=== PATIENT | female | born 1960 | race Hispanic/Latino ===

== ENCOUNTER 2019-02-10 20:06 | Emergency (ER) | payer OTHER ==
[2019-02-10 20:29] LABS: APPEARANCE,URINE Clear (CLEAR); BILIRUBIN,URINE Negative (NEGATIVE); COLOR,URINE Yellow (YELLOW); GLUCOSE, URINE (UA) >=1000 mg/dL (NEGATIVE); KETONES,URINE Negative (NEGATIVE); LEUKOCYTE ESTERASE ,URINE Moderate (NEGATIVE); NITRATE,URINE Negative (NEGATIVE); OCCULT BLOOD,URINE Small (NEGATIVE); PH,URINE 6.5 (5.0-8.0); PROTEIN,URINE Negative (NEGATIVE)
[2019-02-10 20:37] LABS: BACTERIA,URINE Few /HPF (None Seen); MUCUS,URINE Few LPF (None Seen); SQUAMOUS EPITHELIAL CELL,UR 0-2 /HPF (0-2)
[2019-02-10] MEDS ORDERED: SODIUM CHLORIDE 0.9% 1000ML 1,000 ML IV ONE (21:05)
[2019-02-10] MEDS ORDERED: ONDANSETRON HCL 4 MG/2 ML VIAL ONE (21:05)
[2019-02-10] MEDS ORDERED: KETOROLAC TROMETHAMINE 30MG/ML ONE (21:05)
[2019-02-10 21:09] LABS: BASOPHILS % (AUTO) 0.2 % (0.0-5.0); EOSINOPHILS % (AUTO) 1.3 % (0.0-8.0); HEMATOCRIT 46.3 % (36-48); LYMPHOCYTES % (AUTO) 22.5 % (21.0-51.0); MEAN CORPUSCULAR HEMOGLOBIN 27.5 pg (27.0-33.0); MEAN CORPUSCULAR HGB CONC 33.3 g/dL (32.0-36.0); MEAN CORPUSCULAR VOLUME 82.5 fL (79-99); MONOCYTES % (AUTO) 7.6 % (3.0-13.0); PLATELET COUNT (AUTO) 339 K/uL (130-400); RED BLOOD CELL COUNT(AUTO) 5.61 MIL/uL (4.00-5.50); RED CELL DISTRIBUTION WIDTH 13.3 % (11.0-15.5); WHITE BLOOD COUNT (AUTO) 13.5 K/uL (4.8-10.8)
[2019-02-10 21:21] LABS: CREATININE 0.7 mg/dL (0.5-1.5); POTASSIUM 3.7 mmol/L (3.5-5.1)
[2019-02-10 21:25] LABS: ALBUMIN 3.4 g/dL (3.5-5.0); BILIRUBIN,TOTAL 0.3 mg/dL (0.2-1.0); TOTAL PROTEIN, SERUM 7.1 g/dL (6.0-8.3)
[2019-02-10] MEDS ORDERED: INSULIN HUMULIN R 100 UNIT/ML 3ML ONE (21:43)
[2019-02-10] MEDS ORDERED: LACTULOSE 20 GM/30 ML UDCUP ONE (21:53)
== END 2019-02-10 22:11 | disposition home or self-care (01) ==
LOC: EDH 20:06
DX: K59.00 Constipation, unspecified (principal); E11.9 Type 2 diabetes mellitus without complications; I10 Essential (primary) hypertension
CPT/HCPCS: 36415; 74176; 80053; 81001; 83690; 85025; 93005; 96374; 96375; 99285; J1815; J1885; J2405; J7030

== ENCOUNTER 2022-03-28 17:56 | Inpatient (IN) | payer OTHER ==
[~2022-03-28] VITALS: Ht 152.4 cm; Wt 102.5 kg
[2022-03-28 19:54] LABS: BASOPHILS % (AUTO) 0.2 % (0.0-5.0); HEMATOCRIT 44.2 % (36-48); LYMPHOCYTES % (AUTO) 3.1 % (21.0-51.0); MEAN CORPUSCULAR HEMOGLOBIN 26.1 pg (27.0-33.0); MEAN CORPUSCULAR VOLUME 78.9 fL (79-99); PLATELET COUNT (AUTO) 264 K/uL (130-400); RED CELL DISTRIBUTION WIDTH 14.9 % (11.0-15.5); WHITE BLOOD COUNT (AUTO) 20.8 K/uL (4.8-10.8)
[2022-03-28 20:03] LABS: APPEARANCE,URINE CLEAR (CLEAR); BILIRUBIN,URINE NEGATIVE (NEGATIVE); COLOR,URINE LIGHT-YELLOW (YELLOW); GLUCOSE, URINE (UA) >=1000 mg/dL (NEGATIVE); KETONES,URINE 10 mg/dL (NEGATIVE); LEUKOCYTE ESTERASE ,URINE 250 Leu/uL (NEGATIVE); NITRATE,URINE NEGATIVE (NEGATIVE); PROTEIN,URINE 10 mg/dL (NEGATIVE); UROBILINOGEN,URINE 0.2 mg/dL (0.2-1.0)
[2022-03-28 20:13] LABS: ALBUMIN 2.5 g/dL (3.5-5.0); CREATININE 0.7 mg/dL (0.5-1.5); MAGNESIUM 2.2 mg/dL (1.80-2.40); POTASSIUM 4.6 mmol/L (3.5-5.1); TOTAL PROTEIN, SERUM 7.2 g/dL (6.0-8.3)
[2022-03-28 20:20] LABS: B-TYPE NATRIURETIC PEPTIDE 40 pg/mL (0-100)
[2022-03-28 20:24] LABS: BACTERIA,URINE RARE /HPF (None Seen); MUCUS,URINE RARE LPF (None Seen); SQUAMOUS EPITHELIAL CELL,UR RARE /HPF (0-2)
[2022-03-28] MEDS ORDERED: CEFTRIAXONE 2GM VIAL IVP ONE (20:30)
[2022-03-28] MEDS ORDERED: 0.9%NACL 1000ML 1,365 ML IV ONE (20:30)
[2022-03-28 21:18] LABS: ABG OXYGEN SATURATION 79.4 % (95.0-99.0); BASE EXCESS,VENOUS BLOOD GAS 2.9 (-2.0-3.0); HCO3,VENOUS BLOOD GAS 27.7 (21.0-28.0); PCO2,VENOUS BLOOD GAS 43 (32-45); PH,VENOUS BLOOD GAS 7.425 (7.350-7.450)
[2022-03-28] MEDS ORDERED: ACETAMINOPHEN 325 MG TAB PO PRN (23:00)
[2022-03-28] MEDS ORDERED: METOPROLOL SUCCINATE 50 MG TAB.SR.24H PO ONE (23:30)
[2022-03-29 00:07] LABS: CREATININE 0.9 mg/dL (0.5-1.5); POTASSIUM 4.5 mmol/L (3.5-5.1)
[2022-03-29] MEDS ORDERED: INSULIN HUMULIN R 100 UNIT/ML 3ML ONE (01:25)
[2022-03-29] MEDS: ONDANSETRON 4MG INJ IV PRN (06:59)
[2022-03-29] MEDS: MORPHINE 2 MG SYG IV PRN (07:01)
[2022-03-29 07:54] LABS: BASOPHILS % (AUTO) 0.1 % (0.0-5.0); EOSINOPHILS % (AUTO) 0.4 % (0.0-8.0); HEMATOCRIT 36.1 % (36-48); LYMPHOCYTES % (AUTO) 6.7 % (21.0-51.0); MEAN CORPUSCULAR HEMOGLOBIN 25.8 pg (27.0-33.0); MEAN CORPUSCULAR HGB CONC 32.7 g/dL (32.0-36.0); MONOCYTES % (AUTO) 4.7 % (3.0-13.0); NEUTROPHILS % (AUTO) 87.3 % (40.0-77.0); PLATELET COUNT (AUTO) 259 K/uL (130-400); RED BLOOD CELL COUNT(AUTO) 4.57 MIL/uL (4.00-5.50); RED CELL DISTRIBUTION WIDTH 15.5 % (11.0-15.5); WHITE BLOOD COUNT (AUTO) 24.1 K/uL (4.8-10.8)
[2022-03-29] MEDS: INSULIN HUMULIN R 100 UNIT/ML 3ML SQ SCH ×3 (08:01→20:45)
[2022-03-29] MEDS: ENOXAPARIN SODIUM 40 MG/0.4 ML SYRINGE SQ SCH (08:01)
[2022-03-29] MEDS: FAMOTIDINE 20MG VIAL IV SCH ×2 (08:02→20:28)
[2022-03-29 08:13] LABS: ALBUMIN 1.9 g/dL (3.5-5.0); CREATININE 0.6 mg/dL (0.5-1.5)
[2022-03-29 08:23] LABS: CRP QUANTITATIVE 174.1 mg/L (0.00-9.0)
[2022-03-29] MEDS: INSULIN LISPRO 100 UNIT/ML 3ML SQ SCH ×3 (08:52→17:48)
[2022-03-29 09:13] LABS: ERYTHROCYTE SEDIMENTATION RATE 47 MM/HR (0-30)
[2022-03-29 12:30] VITALS: BP 156/75
[2022-03-29] MEDS: 0.9%NACL 1000ML 1,000 ML IV SCH (17:01)
[2022-03-29] MEDS: CEFTRIAXONE 2GM VIAL IVP SCH (17:01)
[2022-03-29] MEDS: ACETAMINOPHEN 325 MG TAB PO PRN (17:50)
[2022-03-29] MEDS ORDERED: INSULIN HUMULIN R 100 UNIT/ML 3ML SQ SCH (18:00)
[2022-03-29 19:35] VITALS: BP 132/57
[2022-03-29] MEDS: INSULIN GLARGINE 100 UNITS/ML 10 ML VIAL SQ SCH (20:46)
[2022-03-29 23:58] VITALS: BP 123/57
[2022-03-30] MEDS: ACETAMINOPHEN 325 MG TAB PO PRN (02:16)
[2022-03-30] MEDS: CEFTRIAXONE 2GM VIAL IVP SCH (03:24)
[2022-03-30] MEDS: 0.9%NACL 1000ML 1,000 ML IV SCH ×3 (03:24→21:58)
[2022-03-30 03:43] VITALS: BP 109/56
[2022-03-30] MEDS: INSULIN HUMULIN R 100 UNIT/ML 3ML SQ SCH ×4 (06:41→21:37)
[2022-03-30 08:00] VITALS: BP 128/59
[2022-03-30] MEDS: INSULIN LISPRO 100 UNIT/ML 3ML SQ SCH ×3 (08:05→16:12)
[2022-03-30] MEDS: FAMOTIDINE 20MG VIAL IV SCH ×2 (08:05→19:41)
[2022-03-30] MEDS: ENOXAPARIN SODIUM 40 MG/0.4 ML SYRINGE SQ SCH (08:09)
[2022-03-30 12:00] VITALS: BP 145/70
[2022-03-30] MEDS: MORPHINE 2 MG SYG IV PRN ×2 (12:15→19:41)
[2022-03-30] MEDS: ZOSYN 3.375GM +NS 50ML IV SCH ×2 (12:59→21:29)
[2022-03-30 16:00] VITALS: BP 127/55
[2022-03-30] MEDS ORDERED: NITROGLYCERIN 1GM OINT 1 INCH/1GM TD ONE ×2 (19:40→20:00)
[2022-03-30 20:00] VITALS: BP 114/53
[2022-03-30] MEDS ORDERED: NITROGLYCERIN 1GM OINT 1 INCH/1GM TD SCH (20:00)
[2022-03-30] MEDS: INSULIN GLARGINE 100 UNITS/ML 10 ML VIAL SQ SCH (21:37)
[2022-03-30] MEDS: ONDANSETRON 4MG INJ IV PRN (21:44)
[2022-03-30] MEDS: NITROGLYCERIN 1GM OINT 1 INCH/1GM TD SCH (22:30)
[2022-03-31] VITALS: BP 116/64
[2022-03-31 04:00] VITALS: BP 96/39
[2022-03-31] MEDS: ZOSYN 3.375GM +NS 50ML IV SCH ×3 (04:16→22:02)
[2022-03-31 04:57] LABS: CREATININE 0.5 mg/dL (0.5-1.5); MAGNESIUM 1.8 mg/dL (1.80-2.40); PHOSPHORUS 2.7 mg/dL (2.5-4.9); POTASSIUM 3.7 mmol/L (3.5-5.1)
[2022-03-31 05:09] LABS: BASOPHILS % (AUTO) 0.1 % (0.0-5.0); EOSINOPHILS % (AUTO) 1.3 % (0.0-8.0); HEMATOCRIT 21.3 % (36-48); LYMPHOCYTES % (AUTO) 16.8 % (21.0-51.0); MEAN CORPUSCULAR HEMOGLOBIN 26.2 pg (27.0-33.0); MEAN CORPUSCULAR HGB CONC 32.9 g/dL (32.0-36.0); MEAN CORPUSCULAR VOLUME 79.8 fL (79-99); MONOCYTES % (AUTO) 7.3 % (3.0-13.0); NEUTROPHILS % (AUTO) 73.3 % (40.0-77.0); PLATELET COUNT (AUTO) 197 K/uL (130-400); RED BLOOD CELL COUNT(AUTO) 2.67 MIL/uL (4.00-5.50); RED CELL DISTRIBUTION WIDTH 15.3 % (11.0-15.5); WHITE BLOOD COUNT (AUTO) 11.9 K/uL (4.8-10.8)
[2022-03-31] MEDS: NITROGLYCERIN 1GM OINT 1 INCH/1GM TD SCH (05:54)
[2022-03-31] MEDS: INSULIN HUMULIN R 100 UNIT/ML 3ML SQ SCH ×4 (05:55→22:22)
[2022-03-31] MEDS: 0.9%NACL 1000ML 1,000 ML IV SCH (07:30)
[2022-03-31 08:00] VITALS: BP 119/57
[2022-03-31] MEDS ORDERED: NITROGLYCERIN 1GM OINT 1 INCH/1GM TD PRN (08:00)
[2022-03-31 08:40] LABS: HEMATOCRIT 21.4 % (36-48); MEAN CORPUSCULAR HEMOGLOBIN 25.5 pg (27.0-33.0); MEAN CORPUSCULAR HGB CONC 31.8 g/dL (32.0-36.0); MEAN CORPUSCULAR VOLUME 80.1 fL (79-99); RED BLOOD CELL COUNT(AUTO) 2.67 MIL/uL (4.00-5.50); RED CELL DISTRIBUTION WIDTH 15.5 % (11.0-15.5); WHITE BLOOD COUNT (AUTO) 9.6 K/uL (4.8-10.8)
[2022-03-31] MEDS: FAMOTIDINE 20MG VIAL IV SCH ×2 (08:46→22:02)
[2022-03-31] MEDS: MORPHINE 2 MG SYG IV PRN (08:47)
[2022-03-31] MEDS: INSULIN LISPRO 100 UNIT/ML 3ML SQ SCH ×3 (08:51→17:52)
[2022-03-31] MEDS: ENOXAPARIN SODIUM 40 MG/0.4 ML SYRINGE SQ SCH (08:55)
[2022-03-31] MEDS ORDERED: INSULIN GLARGINE 100 UNITS/ML 10 ML VIAL SQ SCH (09:00)
[2022-03-31] MEDS ORDERED: IOHEXOL 350 MG/ML 100ML INFUS..BTL IV ONE (10:27)
[2022-03-31] MEDS ORDERED: IOHEXOL-350 50ML VIAL IV ONE (10:28)
[2022-03-31 12:00] VITALS: BP 149/75
[2022-03-31 16:00] VITALS: BP 138/62
[2022-03-31 20:00] VITALS: BP 129/47
[2022-03-31] MEDS ORDERED: LACTULOSE 20 GM/30 ML UDCUP ONE (21:09)
[2022-03-31] MEDS: LACTULOSE 20 GM/30 ML UDCUP PO PRN (22:02)
[2022-03-31] MEDS: INSULIN GLARGINE 100 UNITS/ML 10 ML VIAL SQ SCH (22:24)
[2022-04-01] VITALS: BP 130/52
[2022-04-01 04:00] VITALS: BP_SYST 137; BP_SYST 144; BP_DIAS 59; BP_DIAS 72
[2022-04-01] MEDS: ZOSYN 3.375GM +NS 50ML IV SCH ×2 (05:25→14:10)
[2022-04-01 05:57] LABS: BASOPHILS % (AUTO) 0.1 % (0.0-5.0); EOSINOPHILS % (AUTO) 1.5 % (0.0-8.0); HEMATOCRIT 26.1 % (36-48); LYMPHOCYTES % (AUTO) 19.4 % (21.0-51.0); MEAN CORPUSCULAR HEMOGLOBIN 26.5 pg (27.0-33.0); MEAN CORPUSCULAR HGB CONC 32.6 g/dL (32.0-36.0); MEAN CORPUSCULAR VOLUME 81.3 fL (79-99); MONOCYTES % (AUTO) 8.1 % (3.0-13.0); NEUTROPHILS % (AUTO) 69.9 % (40.0-77.0); PLATELET COUNT (AUTO) 234 K/uL (130-400); RED BLOOD CELL COUNT(AUTO) 3.21 MIL/uL (4.00-5.50); RED CELL DISTRIBUTION WIDTH 15.5 % (11.0-15.5); WHITE BLOOD COUNT (AUTO) 10.8 K/uL (4.8-10.8)
[2022-04-01 06:04] LABS: CREATININE 0.6 mg/dL (0.5-1.5); POTASSIUM 3.6 mmol/L (3.5-5.1)
[2022-04-01] MEDS: INSULIN HUMULIN R 100 UNIT/ML 3ML SQ SCH ×3 (07:24→21:00)
[2022-04-01 08:00] VITALS: BP 127/62
[2022-04-01] MEDS: 0.9%NACL 1000ML 1,000 ML IV SCH ×3 (10:22→14:11)
[2022-04-01] MEDS: INSULIN LISPRO 100 UNIT/ML 3ML SQ SCH ×3 (10:29→17:43)
[2022-04-01] MEDS: INSULIN GLARGINE 100 UNITS/ML 10 ML VIAL SQ SCH ×2 (10:29→21:12)
[2022-04-01] MEDS: FAMOTIDINE 20MG VIAL IV SCH ×2 (10:30→21:01)
[2022-04-01] MEDS: ENOXAPARIN SODIUM 40 MG/0.4 ML SYRINGE SQ SCH (10:31)
[2022-04-01 12:00] VITALS: BP 125/56
[2022-04-01 16:00] VITALS: BP 144/72
[2022-04-01] MEDS ORDERED: LOSARTAN 25 MG TABLET PO ONE (17:30)
[2022-04-01] MEDS: MEROPENEM 1 GM VIAL IVP SCH (17:43)
[2022-04-01 20:00] VITALS: BP 156/64
[2022-04-01] MEDS: BISACODYL 5 MG TABLET.DR PO SCH (21:00)
[2022-04-01] MEDS: ATORVASTATIN 20 MG TABLET PO SCH (21:01)
[2022-04-02] VITALS: BP 118/42
[2022-04-02] MEDS: MEROPENEM 1 GM VIAL IVP SCH ×3 (01:15→18:21)
[2022-04-02] MEDS: 0.9%NACL 1000ML 1,000 ML IV SCH ×3 (01:19→21:27)
[2022-04-02 04:00] VITALS: BP 118/49
[2022-04-02 05:24] LABS: BASOPHILS % (AUTO) 0.2 % (0.0-5.0); EOSINOPHILS % (AUTO) 1.8 % (0.0-8.0); HEMATOCRIT 24.2 % (36-48); LYMPHOCYTES % (AUTO) 19.3 % (21.0-51.0); MEAN CORPUSCULAR HEMOGLOBIN 26.7 pg (27.0-33.0); MEAN CORPUSCULAR HGB CONC 33.1 g/dL (32.0-36.0); MEAN CORPUSCULAR VOLUME 80.7 fL (79-99); MONOCYTES % (AUTO) 8.2 % (3.0-13.0); NEUTROPHILS % (AUTO) 69.1 % (40.0-77.0); NUCLEATED RED BLOOD CELLS 0.2 % (0.0-0.19); PLATELET COUNT (AUTO) 273 K/uL (130-400); RED CELL DISTRIBUTION WIDTH 15.8 % (11.0-15.5); WHITE BLOOD COUNT (AUTO) 12.5 K/uL (4.8-10.8)
[2022-04-02 06:25] LABS: CREATININE 0.6 mg/dL (0.5-1.5); CRP QUANTITATIVE 47.9 mg/L (0.00-9.0); POTASSIUM 3.6 mmol/L (3.5-5.1)
[2022-04-02] MEDS: INSULIN HUMULIN R 100 UNIT/ML 3ML SQ SCH ×4 (07:16→21:27)
[2022-04-02 08:00] VITALS: BP_SYST 127; BP_SYST 131; BP_DIAS 50; BP_DIAS 62
[2022-04-02] MEDS: BISACODYL 5 MG TABLET.DR PO SCH ×3 (09:37→21:20)
[2022-04-02] MEDS: LOSARTAN 25 MG TABLET PO SCH (09:37)
[2022-04-02] MEDS: FAMOTIDINE 20MG VIAL IV SCH ×2 (09:37→21:20)
[2022-04-02] MEDS: ENOXAPARIN SODIUM 40 MG/0.4 ML SYRINGE SQ SCH (09:38)
[2022-04-02] MEDS: INSULIN LISPRO 100 UNIT/ML 3ML SQ SCH ×3 (09:50→18:22)
[2022-04-02 11:33] VITALS: BP 129/43
[2022-04-02 15:50] VITALS: BP 140/78
[2022-04-02 19:00] VITALS: BP 143/47
[2022-04-02] MEDS: ATORVASTATIN 20 MG TABLET PO SCH (21:19)
[2022-04-02] MEDS: INSULIN GLARGINE 100 UNITS/ML 10 ML VIAL SQ SCH (21:26)
[2022-04-03] VITALS: BP 140/60
[2022-04-03] MEDS: MEROPENEM 1 GM VIAL IVP SCH ×3 (00:26→18:08)
[2022-04-03 04:00] VITALS: BP 139/58
[2022-04-03] MEDS: 0.9%NACL 1000ML 1,000 ML IV SCH ×2 (06:10→15:30)
[2022-04-03] MEDS: INSULIN HUMULIN R 100 UNIT/ML 3ML SQ SCH ×4 (06:13→20:47)
[2022-04-03 08:00] VITALS: BP 150/70
[2022-04-03] MEDS: INSULIN LISPRO 100 UNIT/ML 3ML SQ SCH ×2 (08:00→13:04)
[2022-04-03] MEDS: BISACODYL 5 MG TABLET.DR PO SCH ×2 (10:44→13:57)
[2022-04-03] MEDS: FAMOTIDINE 20MG VIAL IV SCH ×2 (10:44→20:43)
[2022-04-03] MEDS: ENOXAPARIN SODIUM 40 MG/0.4 ML SYRINGE SQ SCH (10:44)
[2022-04-03] MEDS: LOSARTAN 25 MG TABLET PO SCH (10:44)
[2022-04-03 12:00] VITALS: BP 157/72
[2022-04-03 16:00] VITALS: BP 128/58
[2022-04-03] MEDS ORDERED: INSULIN LISPRO 100 UNIT/ML 3ML SQ SCH (17:00)
[2022-04-03 19:00] VITALS: BP 138/62
[2022-04-03] MEDS: ATORVASTATIN 20 MG TABLET PO SCH (20:43)
[2022-04-03] MEDS: INSULIN GLARGINE 100 UNITS/ML 10 ML VIAL SQ SCH (20:48)
[2022-04-04] VITALS: BP 155/69
[2022-04-04] MEDS: MEROPENEM 1 GM VIAL IVP SCH ×3 (01:31→17:35)
[2022-04-04] MEDS: 0.9%NACL 1000ML 1,000 ML IV SCH (01:32)
[2022-04-04 04:00] VITALS: BP 130/57
[2022-04-04] MEDS: INSULIN HUMULIN R 100 UNIT/ML 3ML SQ SCH ×4 (06:15→20:31)
[2022-04-04 07:30] VITALS: BP 138/61
[2022-04-04] MEDS: ENOXAPARIN SODIUM 40 MG/0.4 ML SYRINGE SQ SCH (09:27)
[2022-04-04] MEDS: FAMOTIDINE 20MG VIAL IV SCH (09:27)
[2022-04-04] MEDS: LOSARTAN 25 MG TABLET PO SCH (09:28)
[2022-04-04] MEDS: INSULIN LISPRO 100 UNIT/ML 3ML SQ SCH ×3 (09:38→17:37)
[2022-04-04 11:00] VITALS: BP 158/64
[2022-04-04] MEDS ORDERED: EPOETIN ALFA-EPBX (NON-ESRD) 10,000 UNIT/ML VIAL SQ SCH (12:00)
[2022-04-04] MEDS ORDERED: IRON SUCROSE COMPLEX 500 MG in 0.9%NACL 50ML 50 ML IV SCH (12:00)
[2022-04-04] MEDS ORDERED: COMPOUND IV REFRIGERATED 1 EACH IVSOLN MISC PRN (12:00)
[2022-04-04 12:14] LABS: BASOPHILS % (AUTO) 0.2 % (0.0-5.0); EOSINOPHILS % (AUTO) 1.3 % (0.0-8.0); HEMATOCRIT 28.3 % (36-48); LYMPHOCYTES % (AUTO) 18.3 % (21.0-51.0); MEAN CORPUSCULAR HEMOGLOBIN 26.6 pg (27.0-33.0); MEAN CORPUSCULAR HGB CONC 31.8 g/dL (32.0-36.0); MEAN CORPUSCULAR VOLUME 83.7 fL (79-99); MONOCYTES % (AUTO) 7.2 % (3.0-13.0); NEUTROPHILS % (AUTO) 70.6 % (40.0-77.0); NUCLEATED RED BLOOD CELLS 0.3 % (0.0-0.19); PLATELET COUNT (AUTO) 461 K/uL (130-400); RED BLOOD CELL COUNT(AUTO) 3.38 MIL/uL (4.00-5.50); RED CELL DISTRIBUTION WIDTH 16.1 % (11.0-15.5); WHITE BLOOD COUNT (AUTO) 11.4 K/uL (4.8-10.8)
[2022-04-04 12:26] LABS: CREATININE 0.8 mg/dL (0.5-1.5); POTASSIUM 3.9 mmol/L (3.5-5.1)
[2022-04-04 12:30] LABS: PHOSPHORUS 2.4 mg/dL (2.5-4.9)
[2022-04-04] MEDS ORDERED: KCL 20 MEQ ERTAB PO ONE (12:30)
[2022-04-04] MEDS ORDERED: METOPROLOL TARTRATE 25 MG TAB PO ONE (12:30)
[2022-04-04] MEDS ORDERED: FUROSEMIDE 40MG VIAL IV ONE (12:30)
[2022-04-04] MEDS: CYANOCOBALAMIN (VITAMIN B-12) 1000 MCG/ML 1ML VIAL IM SCH (12:32)
[2022-04-04 16:00] VITALS: BP 147/63
[2022-04-04 19:00] VITALS: BP 168/65
[2022-04-04] MEDS: FAMOTIDINE 20MG TAB PO SCH (20:28)
[2022-04-04] MEDS: ATORVASTATIN 20 MG TABLET PO SCH (20:28)
[2022-04-04] MEDS: ACETAMINOPHEN 325 MG TAB PO PRN (20:28)
[2022-04-04] MEDS: METOPROLOL TARTRATE 25 MG TAB PO SCH (20:28)
[2022-04-04] MEDS: INSULIN GLARGINE 100 UNITS/ML 10 ML VIAL SQ SCH (20:31)
[2022-04-04] MEDS: LACTULOSE 20 GM/30 ML UDCUP PO PRN (23:14)
[2022-04-05] VITALS: BP 124/63
[2022-04-05] MEDS: MEROPENEM 1 GM VIAL IVP SCH ×3 (01:08→16:42)
[2022-04-05 04:00] VITALS: BP 108/53
[2022-04-05 04:34] LABS: BASOPHILS % (AUTO) 0.4 % (0.0-5.0); HEMATOCRIT 27.5 % (36-48); LYMPHOCYTES % (AUTO) 17.7 % (21.0-51.0); MEAN CORPUSCULAR HGB CONC 31.6 g/dL (32.0-36.0); MEAN CORPUSCULAR VOLUME 82.3 fL (79-99); MONOCYTES % (AUTO) 8.5 % (3.0-13.0); NEUTROPHILS % (AUTO) 66.9 % (40.0-77.0); NUCLEATED RED BLOOD CELLS 1.4 % (0.0-0.19); PLATELET COUNT (AUTO) 467 K/uL (130-400); RED BLOOD CELL COUNT(AUTO) 3.34 MIL/uL (4.00-5.50); RED CELL DISTRIBUTION WIDTH 16.2 % (11.0-15.5); WHITE BLOOD COUNT (AUTO) 9.9 K/uL (4.8-10.8)
[2022-04-05 04:42] LABS: CREATININE 0.7 mg/dL (0.5-1.5); POTASSIUM 3.9 mmol/L (3.5-5.1)
[2022-04-05] MEDS: INSULIN HUMULIN R 100 UNIT/ML 3ML SQ SCH ×3 (07:30→15:22)
[2022-04-05 08:00] VITALS: BP 138/62
[2022-04-05] MEDS: METOPROLOL TARTRATE 25 MG TAB PO SCH (08:05)
[2022-04-05] MEDS: CYANOCOBALAMIN (VITAMIN B-12) 1000 MCG/ML 1ML VIAL IM SCH (08:05)
[2022-04-05] MEDS: FAMOTIDINE 20MG TAB PO SCH (08:05)
[2022-04-05] MEDS: LOSARTAN 25 MG TABLET PO SCH (08:05)
[2022-04-05] MEDS: INSULIN LISPRO 100 UNIT/ML 3ML SQ SCH ×3 (08:12→16:42)
[2022-04-05] MEDS ORDERED: KCL 20 MEQ ERTAB PO ONE (08:30)
[2022-04-05] MEDS ORDERED: FUROSEMIDE 20MG VIAL IV ONE (08:30)
[2022-04-05] MEDS ORDERED: IRON SUCROSE COMPLEX 200 MG in 0.9%NACL 50ML 50 ML IV SCH (09:00)
[2022-04-05] MEDS ORDERED: IRON SUCROSE COMPLEX 100 MG/5 ML VIAL IVP SCH (09:00)
[2022-04-05] MEDS ORDERED: FOLIC ACID 5 MG/ML VIAL IVP SCH (09:00)
[2022-04-05 11:50] VITALS: BP 117/59
[2022-04-05 16:00] VITALS: BP 129/83
[2022-04-05] MEDS ORDERED: ATOR20TA65 PO (18:02)
[2022-04-05] MEDS ORDERED: LEVO750T68 PO (18:02)
[2022-04-05] MEDS ORDERED: [UNRECOGNIZED DRUG - CODE] MC (18:02)
[2022-04-05] MEDS ORDERED: CYAN25008 SL (18:02)
[2022-04-05] MEDS ORDERED: METO50TA18 PO (18:02)
[2022-04-05] MEDS ORDERED: INSU100V SQ (18:02)
[2022-04-05] MEDS ORDERED: FOLI0.8C PO (18:02)
[2022-04-05] MEDS ORDERED: INSLAN SQ (18:02)
[2022-04-05] MEDS ORDERED: INSULIN GLARGINE 100 UNITS/ML 10 ML VIAL SQ SCH (21:00)
== END 2022-04-05 19:40 | disposition home or self-care (01) | DRG 872 ==
LOC: EDH 17:56 → EDHIP 17:57 → 4DH 03-29 14:37
PROVIDERS: ADMIT Internal Medicine; ATTEND Internal Medicine
PROC: 30233N1 Transfusion of Nonautologous Red Blood Cells into Peripheral Vein, Percutaneous Approach (ICD-10-PCS; principal; 2022-03-31)
DX: A41.51 Sepsis due to Escherichia coli [E. coli] (principal); D62 Acute posthemorrhagic anemia; E87.1 Hypo-osmolality and hyponatremia; Z16.12 Extended spectrum beta lactamase (ESBL) resistance; Z20.822 Contact with and (suspected) exposure to COVID-19; Z16.19 Resistance to other specified beta lactam antibiotics; Z16.24 Resistance to multiple antibiotics; E11.65 Type 2 diabetes mellitus with hyperglycemia; E78.00 Pure hypercholesterolemia, unspecified; E86.1 Hypovolemia; I10 Essential (primary) hypertension; N30.80 Other cystitis without hematuria; R65.20 Severe sepsis without septic shock; Z79.4 Long term (current) use of insulin; Z79.82 Long term (current) use of aspirin; Z79.899 Other long term (current) drug therapy; Z87.442 Personal history of urinary calculi
CPT/HCPCS: 36415; 36430; 36600; 71045; 71275; 74174; 80048; 80053; 80061; 81001; 82010; 82435; 82550; 82607; 82728; 82746; 82803; 82947; 82948; 83036; 83540; 83550; 83605; 83690; 83735; 83874; 83880; 84100; 84132; 84145; 84295; 84484; 85018; 85025; 85027; 85045; 85378; 85651; 86140; 86850; 86900; 86901; 86923; 87040; 87077; 87088; 87186; 87635; 87804; 93005; 93306; 93356; 96361; 96374; C9803; G0378; J0696; J1650; J1756; J1815; J1940; J2185; J2405; J2543; J3420; J3490; J7030; P9016; Q9967